=== PATIENT | female | born 1945 | race Caucasian/White ===

== ENCOUNTER 2018-03-18 10:07 | Emergency (ER) | payer MEDICARE, BC ==
[2018-03-18 10:41] VITALS: BP 133/60
--- NOTE | 2018-03-18 11:06 | UC ---
Complaint Female HPI - HPI Summary HPI Summary: Patient is visiting from out of town. She is complaining of urinary incontinence at night, frequent urination, a sense of urgency and a urine feels "hot". She also notes that today her urine smells foul. She denies any associated fever or abdominal pain. She's had vague symptoms since the 13th of last month. - History Of Current Complaint Chief Complaint: UCGU Stated Complaint: URINARY Time Seen by Provider: 03/18/18 10:56 Hx Obtained From: Patient Onset/Duration: Gradual Onset Timing: Constant Pain Intensity: 0 Aggravating Factor(s): Nothing Alleviating Factor(s): Nothing Associated Signs And Symptoms: Negative: Fever, Back Pain - Allergies/Home Medications Allergies/Adverse Reactions: Allergies Allergy/AdvReac Type Severity Reaction Status Date / Time No Known Allergies Allergy Verified 03/18/18 10:33 Home Medications: Home Medications Cholecalciferol TAB* [Vitamin D TAB*] 1,000 unit PO DAILY 03/18/18 [History Confirmed 03/18/18] Citalopram TAB* [CeleXA TAB*] 10 mg PO DAILY 03/18/18 [History Confirmed ] Docusate CAP* [Colace Cap*] 100 mg PO DAILY 03/18/18 [History Confirmed 03/18/18 ] Famotidine TAB* [Pepcid 20 MG TAB*] 20 mg PO BID 03/18/18 [History Confirmed ] Febuxostat(NF) [Uloric(NF)] 40 mg PO DAILY 03/18/18 [History Confirmed 03/18/18] Ferrous Gluconate TAB* [Fergon TAB*] 325 mg PO TID 03/18/18 [History Confirmed 03/18/18] Levothyroxine TAB* [Synthroid TAB*] 25 mcg PO DAILY 03/18/18 [History Confirmed 03/18/18] LoraTADine TAB(NF) [Claritin 10 MG TAB(NF)] 10 mg PO DAILY 03/18/18 [History Confirmed 03/18/18] Magnesium Oxide [Magnesium] 400 mg PO DAILY 03/18/18 [History Confirmed 03/18/18 ] Pregabalin CAP(*) [Lyrica CAP(*)] 25 mg PO BID 03/18/18 [History Confirmed 03/18] Simvastatin TAB(NF) [Zocor(NF)] 10 mg PO DAILY 03/18/18 [History Confirmed 03/18] Solifenacin(NF) [Vesicare(NF)] 5 mg PO DAILY 03/18/18 [History Confirmed ] Warfarin TAB(*) [Coumadin TAB(*)] 1 mg PO DAILY 03/18/18 [History Confirmed ] Zinc 50 mg PO DAILY 03/18/18 [History Confirmed 03/18/18] PMH/Surg Hx/FS Hx/Imm Hx - Additional Past Medical History Additional PMH: UTI Endocrine History: Diabetes, Thyroid Disease, Dyslipidemia Cardiovascular History: Hypertension Neurological History: TIA - Surgical History Surgical History: Yes Surgery Procedure, Year, and Place: thyroid. spleenectomy. Tonsilectomy. [place]. hysterectomy. 3 . bilateral knee replacement. shoulder - Family History Known Family History: Positive: Cardiac Disease - Social History Occupation: Retired Lives: Assisted Living - [facility] Alcohol Use: None Substance Use Type: None Smoking Status (MU): Never Smoked Tobacco - Immunization History Vaccination Up to Date: Yes Review of Systems Constitutional: Negative Skin: Negative Eyes: Negative ENT: Negative Respiratory: Negative Cardiovascular: Negative Gastrointestinal: Negative Genitourinary: Dysuria, Frequency, Urgency Motor: Negative Neurovascular: Negative Musculoskeletal: Negative Neurological: Negative Psychological: Negative Is Patient Immunocompromised?: No All Other Systems Reviewed And Are Negative: Yes Physical Exam Triage Information Reviewed: Yes Appearance: Well-Appearing Vital Signs: Initial Vital Signs Temp 98.3 F 03/18/18 10:34 Pulse 53 03/18/18 10:34 Resp 18 03/18/18 10:34 BP 133/60 03/18/18 10:34 Pulse Ox 100 03/18/18 10:34 Vital Signs Reviewed: Yes Eyes: Positive: Conjunctiva Clear ENT: Positive: Normal ENT inspection Neck: Positive: Supple, Nontender, No Lymphadenopathy Respiratory: Positive: Lungs clear, Normal breath sounds Cardiovascular: Positive: RRR, No Murmur Abdomen Description: Positive: Nontender, No Organomegaly, Soft. Negative: CVA Tenderness (R), CVA Tenderness (L), Distended, Guarding Bowel Sounds: Positive: Present Musculoskeletal: Positive: ROM Intact Neurological: Positive: Alert Psychological: Positive: Normal Response To Family, Age Appropriate Behavior Skin Exam: Normal Diagnostics - Laboratory Diagnostic Studies Completed/Ordered: U/A= POSITIVE FOR PROTEIN, LEUKOCYTES, NITRITIES WITH CULTURE PENDING. Complaint Female Dx - Course Course Of Treatment: NON TOXIC. NO ACUTE ABDOMEN. - Differential Dx/Diagnosis Provider Diagnoses: UTI Discharge - Sign-Out/Discharge Documenting (check all that apply): Patient Departure - Discharge Plan Condition: Stable Disposition: HOME Prescriptions: Cephalexin CAP* [Keflex CAP*] 500 mg PO TID #21 cap Patient Education Materials: Urinary Tract Infection in Women (DC) Referrals: No Primary Care Phys,NOPCP [Primary Care Provider] - Additional Instructions: FOLLOW UP WITH YOUR PRIMARY CARE IN [place] IN 7 DAYS - Billing Disposition and Condition Condition: STABLE Disposition: Home
== END 2018-03-18 11:26 | disposition home or self-care (01) ==
LOC: UCCORT 10:07
DX: N39.0 Urinary tract infection, site not specified (principal); B96.20 Unspecified Escherichia coli [E. coli] as the cause of diseases classified elsewhere; E11.9 Type 2 diabetes mellitus without complications; E07.9 Disorder of thyroid, unspecified; E78.5 Hyperlipidemia, unspecified; I10 Essential (primary) hypertension; Z86.73 Personal history of transient ischemic attack (TIA), and cerebral infarction without residual deficits
CPT/HCPCS: 81003; 87077; 87086; 87186; 99202; G0463

== ENCOUNTER 2018-03-31 15:58 | Emergency (ER) | payer MEDICARE, BC ==
[2018-03-31 16:36] VITALS: BP 145/81
--- NOTE | 2018-03-31 16:50 | UC ---
Complaint Female HPI - HPI Summary HPI Summary: Pt presents with c/o urinary symptoms of frequency, urgency and dysuria. P twas seen here on 03/18/18 and diagnosed with UTI, given keflex 500 mg PO Q8H and completed medication as directed with no improvement in urinary symptoms. - History Of Current Complaint Chief Complaint: UCGU Stated Complaint: URINARY-PERSONAL Time Seen by Provider: 03/31/18 16:31 Hx Obtained From: Patient ?: No Onset/Duration: Sudden Onset, Lasting Days, Still Present Timing: Constant Severity Initially: Mild Severity Currently: Mild Pain Intensity: 0 Character: Burning Aggravating Factor(s): Urination Alleviating Factor(s): Nothing Associated Signs And Symptoms: Positive: Negative Related Hx: Similar Episode/Dx as: - UTI - Risk Factors Ovarian Torsion Risk Factor: Negative - Allergies/Home Medications Allergies/Adverse Reactions: Allergies Allergy/AdvReac Type Severity Reaction Status Date / Time No Known Allergies Allergy Verified 03/31/18 16:37 PMH/Surg Hx/FS Hx/Imm Hx Previously Healthy: Yes Endocrine History: Thyroid Disease, Hypothyroidism Cardiovascular History: Cardiac Disease Psychological History: Anxiety - Surgical History Surgical History: Yes Surgery Procedure, Year, and Place: thyroid. spleenectomy. Tonsilectomy. [place]. hysterectomy. 3 . bilateral knee replacement. shoulder - Family History Known Family History: Positive: Cardiac Disease - Social History Occupation: Retired Lives: With Family Alcohol Use: None Substance Use Type: None Smoking Status (MU): Never Smoked Tobacco Have You Smoked in the Last Year: No - Immunization History Vaccination Up to Date: Yes Review of Systems Constitutional: Negative Skin: Negative Eyes: Negative ENT: Negative Respiratory: Negative Cardiovascular: Negative Gastrointestinal: Negative Genitourinary: Dysuria, Frequency, Urgency, Other - urinary incontinence Motor: Negative Neurovascular: Negative Musculoskeletal: Negative Neurological: Negative, Headache Is Patient Immunocompromised?: No All Other Systems Reviewed And Are Negative: Yes Physical Exam Triage Information Reviewed: Yes Appearance: Well-Appearing Vital Signs: Initial Vital Signs Temp 97.6 F 03/31/18 16:30 Pulse 59 03/31/18 16:30 Resp 16 03/31/18 16:30 BP 145/81 03/31/18 16:30 Pulse Ox 100 03/31/18 16:30 Vital Signs Reviewed: Yes Eye Exam: Normal ENT: Positive: Hearing grossly normal Dental Exam: Normal Neck exam: Normal Respiratory: Positive: No respiratory distress Musculoskeletal Exam: Normal Neurological Exam: Normal Psychological Exam: Normal Skin Exam: Normal Complaint Female Dx - Differential Dx/Diagnosis Differential Diagnosis/HQI/PQRI: Urinary Tract Infection Provider Diagnoses: UTI Discharge - Sign-Out/Discharge Documenting (check all that apply): Patient Departure - Discharge Plan Condition: Stable Disposition: HOME Prescriptions: Ciprofloxacin TAB* [Cipro 500 MG TAB*] 500 mg PO Q12H #14 tab Phenazopyridine TAB* [Pyridium 100 mg TAB*] 100 mg PO Q8H #6 tab Patient Education Materials: Urinary Tract Infection in Women (ED) Referrals: [facility] [Outside] - If Needed No Primary Care Phys,NOPCP [Primary Care Provider] - Osei James MD [Medical Doctor] - If Needed - Billing Disposition and Condition Condition: STABLE Disposition: Home
== END 2018-03-31 17:04 | disposition home or self-care (01) ==
LOC: UCCORT 15:58
DX: N39.0 Urinary tract infection, site not specified (principal); Z96.653 Presence of artificial knee joint, bilateral
CPT/HCPCS: 81003; 87086; 99212; G0463